=== PATIENT | female | born 1975 | race Caucasian/White ===

== ENCOUNTER 2017-07-18 08:30 | Emergency (ER) | payer OTHER ==
[~2017-07-18] VITALS: Ht 162.6 cm; Wt 54.4 kg
[~2017-07-18 08:30] MED LIST: ALPRAZOLAM; ALPRAZOLAM ER1 MG PO; AMBIEN 10 MG TA10 MG PO; CELEXA 20 MG TA20 MG PO; DOXYCYCLINE 10100 MG PO; FAMOTIDINE OR; FLAGYL500 MG PO; RISPERDAL0.5 MG PO; TRAMADOL 50 MG50 MG PO; ZOLOFT
[2017-07-18] MEDS ORDERED: XANAX1 MG PO (08:44)
[2017-07-18] MEDS ORDERED: AMBIEN 10 MG TA10 MG PO (08:44)
[2017-07-18 10:04] VITALS: BP 112/71
== END 2017-07-18 10:05 | disposition home or self-care (01) ==
LOC: ER 08:30
DX: F41.9 Anxiety disorder, unspecified (principal); G47.9 Sleep disorder, unspecified; F43.9 Reaction to severe stress, unspecified; M79.7 Fibromyalgia; F17.210 Nicotine dependence, cigarettes, uncomplicated; Z90.49 Acquired absence of other specified parts of digestive tract; Z90.710 Acquired absence of both cervix and uterus; Z88.5 Allergy status to narcotic agent; Z88.6 Allergy status to analgesic agent

== ENCOUNTER 2018-03-26 12:54 | Emergency (ER) | payer OTHER ==
[~2018-03-26] VITALS: Ht 162.6 cm; Wt 54.4 kg
[~2018-03-26 12:54] MED LIST changes: +XANAX1 MG PO
[2018-03-26] MEDS ORDERED: LAMICTAL 25 MG25 M1 PO (13:04)
[2018-03-26] MEDS ORDERED: NORTRIPTYLINE H50 M3 PO (13:04)
[2018-03-26 13:26] LABS: AMP/METHAMP Negative (Negative); BARBITURATES Negative (Negative); BENZODIAZEPINES POSITIVE (Negative); COCAINE Negative (Negative); METHADONE Negative (Negative); OPIATES Negative (Negative); PCP Negative (Negative)
[2018-03-26] MEDS ORDERED: AMBIEN 10 MG TA10 MG PO (13:39)
[2018-03-26] MEDS ORDERED: XANAX1 MG PO (13:39)
== END 2018-03-26 13:58 | disposition home or self-care (01) ==
LOC: ER 12:54
PROVIDERS: Emergency Medicine
DX: F19.939 Other psychoactive substance use, unspecified with withdrawal, unspecified (principal); F17.210 Nicotine dependence, cigarettes, uncomplicated; Z88.6 Allergy status to analgesic agent; Z88.5 Allergy status to narcotic agent; Z88.8 Allergy status to other drugs, medicaments and biological substances; M79.7 Fibromyalgia; M32.9 Systemic lupus erythematosus, unspecified; F41.9 Anxiety disorder, unspecified; Z90.49 Acquired absence of other specified parts of digestive tract; Z90.710 Acquired absence of both cervix and uterus